=== PATIENT | male | born 1940 | race Caucasian/White ===

== ENCOUNTER 2019-07-25 17:11 | Inpatient (IN) | payer MEDICARE ==
[~2019-07-25 17:11] MED LIST: Iopamidol 370 76% 100 ML VIAL ONE
[2019-07-25] MEDS ORDERED: Ondansetron PF 4 MG/2 ML Vial ONE (17:48)
[2019-07-25 18:01] LABS: #Basophils 0.1 thou/uL (0.0-0.2); #Eosinphils 0.2 thou/uL (0.0-0.7); #Lymphocytes 1.8 thou/uL (1.20-3.40); #Monocytes 0.6 thou/uL (0.11-0.59); #Neutrophils 6.3 thou/uL (1.40-6.50); %Basophils 0.7 % (0.0-1.0); %Eosinophils 1.9 % (0.0-10.0); %Lymphocytes 19.9 % (21.0-51.0); %Monocytes 6.6 % (0.0-10.0); %Neutrophils 70.9 % (42.0-75.0); Hemoglobin 13.4 g/dL (14.0-18.0); Mean Corpuscular Hemoglobin 31.8 pg (27.0-31.0); Mean Platelet Volume 8.9 fL (7.4-10.4); Platelet Count 190 thou/uL (130-400); RBC Distribution Width 14.9 % (11.5-14.5); Red Blood Cell (RBC) Count 4.22 mill/uL (4.70-6.10); White Blood Cell (WBC) Count 8.8 thou/uL (4.8-10.8)
[2019-07-25 18:08] LABS: ALT (SGPT) 19 U/L (8-55); AST (SGOT) 20 U/L (5-34); Albumin 3.8 g/dL (3.4-4.8); Alkaline Phosphatase 147 U/L (40-110); Anion Gap 14 mmol/L (10-20); BUN (Urea Nitrogen) 17 mg/dL (8.4-25.7); Bilirubin, Total 0.4 mg/dL (0.2-1.2); CK (CPK) 39 U/L (30-200); Calc. Creatinine Clearance 0 mL/min (70-130); Calcium 8.9 mg/dL (7.8-10.44); Carbon Dioxide 29 mmol/L (23-31); Chloride 103 mmol/L (98-107); Estimated GFR-MDRD Greater than 90; Globulin 3.1 g/dL (2.4-3.5); Glucose 113 mg/dL (83-110); Lipase 11 U/L (8-78); Protein, Total 6.9 g/dL (5.8-8.1); Sodium 142 mmol/L (136-145)
[2019-07-25 18:11] LABS: Bilirubin Negative (Negative); Blood, Urine Trace (Negative); Clarity Clear (Clear); Glucose, Urine (Dipstick) Negative (Negative); Leukocyte Negative (Negative); Nitrite Negative (Negative); Protein, Urine (Dipstick) Negative (Neg-Trace); Urobilinogen 0.2 mg/dL (Less than 2)
[2019-07-25 18:12] LABS: Renal Epithelial 0-3 HPF (None Seen); Squamous Epithelial 0-3 HPF (0-3); WBC/HPF 0-3 HPF (0-3)
[2019-07-25 18:13] LABS: Bacteria/HPF 1+ HPF (None Seen)
--- NOTE | 2019-07-25 18:54 | CT ---
CT Brain WO Con: 07/25/2019 6:18 PM CLINICAL HISTORY: Headache with nausea vomiting and diarrhea. IMAGING TECHNIQUE: Multiple CT images were obtained of the brain without IV contrast. COMPARISON: Prior CT of the brain without contrast dated April 26, 2017 from [facility] . FINDINGS: Brain: There is stable severe chronic small vessel white matter ischemic change. There is stable mil d ex vacuo dilatation of the lateral ventricles. There is a stable left frontal peritoneal shunt catheter projecting into the region of the third ventricle. Ventricles: As above. Skull: Intact.. Visualized Paranasal sinuses: Stable mucus retention cyst left maxillary sinus.. Mastoid air cells:Clear. Extracranial soft tissues:The visualized portions of the peritoneal shunt catheter tubing appears int act. IMPRESSION: No acute intracranial abnormality.
--- NOTE | 2019-07-25 19:22 | CT ---
CT ABDOMEN AND PELVIS WITH IV CONTRAST: 07/25/19 HISTORY: Abdominal pain and vomiting. FINDINGS: Parenchymal scarring and calcified granulomata at the lung bases. Mild tubular ectasia of the right p osterior lung base. Marked fluid distention of the stomach. Small bowel is relatively decompressed. Small diverticulum pr ojects medially from the second portion of the duodenum. No free air or free fluid. Small right renal cyst. Arising from the tail of the pancreas is a heterogeneous, predominantly low density mass measuring 3. 7 cm diameter. No adjacent inflammation. Gallbladder is surgically absent. Prominent degenerative changes of the lumbar spine. Aortoiliac stent graft excludes a mild pisiform l ower abdominal aortic aneurysm. There is dilatation of the common iliac arteries, with the left measu ring up to 3.5 cm greatest diameter. IMPRESSION: Severe fluid distention of the stomach. Consider gastroparesis versus gastric outlet obstruction. Heterogeneous mass of the pancreatic tail. Neoplasm is favored. No metastasis evident. Severe atherosclerosis. Left common iliac artery aneurysm. Aortoiliac stent graft is in place. Heterogeneous mass of the pancreatic tail. Neoplasm is favored. POS: BST
[2019-07-25] MEDS ORDERED: metroNIDAZOLE 500 MG/100 ML BAG ONE (19:23)
[2019-07-25] MEDS ORDERED: Piperacillin/Tazobactam 3.375 GM VIAL ONE (19:23)
[2019-07-25] MEDS ORDERED: Sodium Chloride 0.9% 100 ML ONE (19:23)
[2019-07-25 21:04] LABS: Troponin I 0.021 ng/mL (< 0.028)
[2019-07-25] MEDS ORDERED: Ondansetron ODT 4 MG TAB SL PRN (23:59)
[2019-07-25] MEDS ORDERED: Ondansetron PF 4 MG/2 ML Vial IVP PRN (23:59)
[2019-07-26 00:19] VITALS: BMI 32.0
[2019-07-26 00:27] LABS: Troponin I 0.019 ng/mL (< 0.028)
[2019-07-26] MEDS ORDERED: metroNIDAZOLE 500 MG in Premix Bag 1 BAG IVPB SCH (06:00)
[2019-07-26] MEDS ORDERED: Piperacillin/Tazobactam 3.375 GM in Sodium Chloride 0.9% 100 ML IVPB SCH (06:00)
[2019-07-26] MEDS ORDERED: Ondansetron ODT 4 MG TAB PO PRN (07:36)
[2019-07-26] MEDS ORDERED: Calcium Carbonate 500 MG ChewTAB PO PRN (07:36)
[2019-07-26] MEDS ORDERED: Senokot S 8.6-50 MG TAB PO PRN (07:36)
[2019-07-26] MEDS ORDERED: Acetaminophen 325 MG TAB PO PRN (07:36)
[2019-07-26] MEDS ORDERED: Bisacodyl 5 MG TAB PO PRN (07:36)
[2019-07-26] MEDS ORDERED: HYDROcodone/Acetaminophen 7.5/325 mg Tablet PO PRN (07:36)
[2019-07-26] MEDS ORDERED: HYDROcodone/Acetaminophen 5/325 mg Tablet PO PRN (07:36)
[2019-07-26] MEDS ORDERED: Ondansetron PF 4 MG/2 ML Vial IVP PRN (07:36)
[2019-07-26] MEDS ORDERED: Melatonin 3 MG TAB PO PRN (07:38)
[2019-07-26] MEDS ORDERED: Docusate 100 MG CAP PO PRN (07:38)
[2019-07-26] MEDS ORDERED: Labetalol HCl 100 MG/20 ML VIAL SLOW IVP PRN (07:38)
[2019-07-26] MEDS ORDERED: diphenhydrAMINE 25 MG CAP PO PRN (07:38)
[2019-07-26] MEDS ORDERED: Benzonatate 100 MG CAP PO PRN (07:38)
[2019-07-26] MEDS ORDERED: Non-Formulary Item 1 EACH (Sacubitril/Valsartan [Entresto 97 Mg-103 Mg Tablet] 1 EACH) PO SCH (09:00)
[2019-07-26] MEDS ORDERED: Nystatin/Triamcinolone Cream 30 GM TUBE TOP SCH (09:00)
[2019-07-26] MEDS: Aspirin 81 mg Enteric Coated Tablet PO SCH (10:35)
[2019-07-26] MEDS: Heparin 5,000 UNITS/ML VIAL SC SCH ×3 (10:36→20:26)
[2019-07-26] MEDS: Famotidine 20 MG TAB PO SCH ×2 (10:36→20:23)
[2019-07-26] MEDS: Gabapentin 100 MG CAP PO SCH ×3 (10:36→20:25)
[2019-07-26] MEDS: Primidone 50 MG TAB PO SCH ×2 (10:37→20:26)
[2019-07-26] MEDS: Sacubitril 49 MG/Valsartan 51 MG TABLET PO SCH ×2 (10:37→20:26)
[2019-07-26] MEDS: Levothyroxine Sodium 50 MCG TAB PO SCH (10:37)
[2019-07-26] MEDS: Nystatin/Triamcinolone Cream 15 GM TUBE TOP SCH ×2 (11:53→20:44)
--- NOTE | 2019-07-26 14:53 | CON ---
DATE OF CONSULTATION: REASON FOR CONSULT: Pancreatic tail mass. HISTORY OF PRESENT ILLNESS: Mr. Carranza is a very pleasant 78-year-old gentleman with past medical history of prostate cancer, pancreatic lesion, and CVA, who presented to the emergency room in [place] with a 1-day history of nausea and vomiting. He stated started after traveling in his car. He thinks he might have gotten car sick. He was also complaining of right lower quadrant abdominal pain. He underwent a CT scan of his abdomen and pelvis. It showed a low-density mass measuring 3.7 cm in diameter. It is heterogeneous. There was also fluid distention in the stomach. There was no evidence of metastatic disease. The patient has a history of pancreatic mass for over 15 years. He has never had a biopsy but was followed with CT scans in [place]. His last scan was several years ago and he does not remember where it was performed. He also has a history of prostate cancer in 2003. He underwent radiation, but denies taking any shots. He says he still has his prostate. He is being followed by Dr. Jarquin. He currently denies any complaints at this time. No nausea or vomiting since arrival. He is seen at bedside with his present. History is obtained from and patient. PAST MEDICAL HISTORY: 1. Prostate cancer. 2. AAA. 3. CVA with right-sided weakness and SUPERVISOR RECORDS CHANGE shunt. 4. Coronary artery disease. 5. Squamous cell skin cancer. 6. Hypothyroidism. 7. pancreatic mass, likely benign PAST SURGICAL HISTORY: 1. SUPERVISOR RECORDS CHANGE shunt placement. 2. Coronary artery stent placement. 3. Skin biopsy on his ear and scalp. ALLERGIES: NO KNOWN DRUG ALLERGIES. HOME MEDICATIONS: Allopurinol, aspirin, atorvastatin, clonazepam, Cymbalta, furosemide, Neurontin, levothyroxine, metoprolol, potassium, primidone, and Entresto. FAMILY HISTORY: Noncontributory. SOCIAL HISTORY: He is , lives with his spouse. No alcohol, tobacco, or illicit drug use. REVIEW OF SYSTEMS: A 10-point review of systems is negative except for noted in HPI. PHYSICAL EXAMINATION: VITAL SIGNS: Temperature 97.9, pulse is 60, respiratory rate 18, BP is 130/60. He is 96% on room air. GENERAL: This is a chronically ill-appearing male, in no acute distress. HEENT: Normocephalic, atraumatic. He has a shunt in his scalp. NECK: Supple. CV: Regular rate and rhythm. LUNGS: Clear anterior. ABDOMEN: Obese, nontender. Bowel sounds are positive. EXTREMITIES: No clubbing, cyanosis, or edema. SKIN: There is rash in his peritoneum. HEMATOLOGIC: No petechiae or purpura. NEUROLOGICAL: He has mild right-sided weakness and delayed answering questions , but is otherwise oriented. PERTINENT LABS AND X-RAYS: Current WBC is 8.8, hemoglobin 13.4, hematocrit 43.2 , platelet count 290,000. He has 71% neutrophils, 20% lymphocytes. Sodium is 142 , potassium 4.0, chloride 103, CO2 is 29, BUN is 17, creatinine 0.78, lactic acid 1.5, calcium 8.9, bilirubin 0.4, AST is 20, ALT is 19, alkaline phosphatase is 147. Serum total protein is 6.9, albumin 3.8, globulin 3.1. TSH is normal. Troponin is normal. Urine is positive for bacteria. ASSESSMENT: 1. Pancreatic tail mass. 2. History of prostate cancer. DISCUSSION: The patient states he has had this pancreatic mass for over 15 years. He has seen oncologist in the past, but never had a biopsy. Unfortunately, he does not have the name of the oncologist or who scanned it last, but he did state he his scan was probably about 10 years ago when he had his aortic aneurysm repaired. It was stable at that time. He has had a colonoscopy before and states he has seen Dr. Galvez. We will ask his office to see if they have any documentation regarding this pancreatic mass. We will check a CA-19-9 and have asked the patient to research his medical records to find imaging of this mass to confirm no recent growth. Case has been discussed with Dr. Tipton. We will follow up on this. Pancreatic mass to be followed by PCP or GI in the outpatient setting. Thank you for the consult. Job ID: [id number] MTDD
--- NOTE | 2019-07-26 14:56 | RAD ---
PORTABLE CHEST 1 VIEW: DATE: 07/26/2019. TIME: 1:59 p.m. HISTORY: CHF. FINDINGS/IMPRESSION: The heart size is borderline. The aorta is tortuous. There is a right-sided pacer device. No lobar consolidation, pneumothoraces, saritha pulmonary edema, or large effusions are seen. There is an old fracture of the left distal clavicle. There is a left-sided OIL PROCESS STILLMAN shunt tubing. POS: KAREL
--- NOTE | 2019-07-26 15:21 | PDOC.HHP ---
Hospitalist HPI - History of Present Illness Nausea, vomiting, diarrhea, and near syncope History of Present Illness: Mr. Carranza is a very pleasant 78-year-old white male with past medical history of pancreatic lesion that has been followed over the last 15 years, prostate cancer , congestive heart failure, pacemaker, hypertension, hyperlipidemia, hypothyroidism, depression, and essential tremor who presents with acute onset of nausea, vomiting, diarrhea and near syncope. Patient's and son at bedside are able to aid in history. They tell me that he was at a doctor's appointment one he started feeling ill. Patient having nausea, vomiting times one, and diarrhea. Patient felt like he was going to pass out at that time though he did not actually passout. Patient did not fall. Patient did not lose consciousness. Patient did not have any trauma. Patient did not have any seizure type activity. Patient did not have a chest pain. Patient did not have any palpitations. Patient did not have any shortness of breath. Patient presented to the emergency department for further evaluation. A CT scan of the abdomen does demonstrate pancreatic mass, however as we do not have old records compared to we cannot determine if it is grown in size or has unchanged. There is no other acute intra-abdominal pathology. Patient's family was concerned that he might have an infection is the cause of nausea and vomiting. Patient has normal white blood cell count. Patient has no fever. Patient has normal urine analysis. Chest x-ray does not demonstrate any acute cardiothoracic process or pneumonia. At this time I do not believe that the patient has any systemic bacterial infection that would warrant continuing antibiotic therapy. Patient does have fungal infection of the skin in the groin area, will add topical antifungal cream. Nausea, vomiting, and diarrhea have resolved this AM. Patient's only complaint this morning is severe left knee pain. No trauma, likely chronic osteoarthritis, will add plain film. With patient's cardiac history will consult cardiology for near syncope. Continuous telemetry to monitor for arrhythmia that may explain symptoms. Echocardiogram ordered to further evaluate for near syncope. Will consult oncology for outpatient follow up on his pancreatic lesion, prostate lesion, and skin cancer being under the care of dermatology. Hospitalist ROS - Review of Systems All other systems reviewed; all pertinent +/- noted in HPI/Subj - Medication Medications: Active Medications Generic Name Dose Route Start Last Admin Trade Name Freq PRN Reason Stop Dose Admin Aspirin 81 mg 07/26/19 09:00 07/26/19 10:35 Ecotrin PO Not Given DAILY [facility] Famotidine 20 mg 07/26/19 09:00 07/26/19 10:36 Pepcid PO Not Given BID [facility] Gabapentin 100 mg 07/26/19 09:00 07/26/19 10:36 Neurontin PO Not Given TID [facility] Heparin Sodium (Porcine) 5,000 units 07/26/19 09:00 07/26/19 10:36 Heparin SC Not Given TID [facility] Levothyroxine Sodium 50 mcg 07/26/19 09:00 07/26/19 10:37 Synthroid PO Not Given QAM [facility] Metoprolol Succinate 25 mg 07/26/19 09:00 07/26/19 10:37 Toprol Xl PO Not Given DAILY [facility] Nystatin/Triamcinolone Acetonide 0 gm 07/26/19 09:00 07/26/19 11:53 Mycogen Ii Cream TOP 1 applic BID [facility] Administration Primidone 150 mg 07/26/19 09:00 07/26/19 10:37 Mysoline PO Not Given BID [facility] Sacubitril/Valsartan 2 tab 07/26/19 09:00 07/26/19 10:37 Entresto 49 Mg-51 Mg Tablet PO Not Given BID [facility] Sodium Chloride 10 ml 07/26/19 09:00 07/26/19 10:38 Flush - Normal Saline IVF Not Given Q12HR [facility] Hospitalist History - Past Medical History Source: patient, family Cardiac: reports: AFIB, CHF, HTN, CA, Syncope, Hyperlipidemia, Valve insufficiency Pulmonary: reports: congestive heart failure, heart attack, high cholesterol, hypertension Heme/Onc: reports: Cancer Psych: reports: Depression Musculoskeletal: reports: Osteoarthritis - Past Surgical History Past Surgical History: reports: Other (FLORAL SPECIALIST shunt, pacemaker) - Family History Family History: reports: hypertension - Social History Smoking Status: Unknown if ever smoked Alcohol: reports: None Drugs: reports: none Living Situation: With Family Domestic Violence: Negative Activity level: uses cane/walker - Exam General Appearance: NAD, awake alert Eye: PERRL, anicteric sclera ENT: normocephalic atraumatic, moist mucosa Neck: supple, symmetric, no lymphadenopathy Heart: no murmur, no gallops, no rubs Respiratory: CTAB, no wheezes, no rales, no ronchi, normal chest expansion Gastrointestinal: soft, non-tender, non-distended, no palpable masses, no guarding, no rigidity Extremities: no edema Skin: no lesions, no rashes Skin - other findings: Fungal groin infection Neurological: cranial nerve grossly intact, normal sensation to touch, no focal deficits Musculoskeletal: no muscle wasting, generalized weakness Musculoskeletal - other findings: Left knee pain - no signs of effusion or cellulitis Psychiatric: A&O x 3, somnolent Hospitalist Results - Labs Result Diagrams: 07/25/19 17:27 07/25/19 17:27 Lab results: WBC 8.8 thou/uL (4.8-10.8) 07/25/19 17:27 Hgb 13.4 g/dL (14.0-18.0) L 07/25/19 17:27 Hct 43.2 % (42.0-52.0) 07/25/19 17:27 MCV 102.0 fL (78.0-98.0) H 07/25/19 17:27 Plt Count 190 thou/uL (130-400) 07/25/19 17:27 Neutrophils % 70.9 % (42.0-75.0) 07/25/19 17:27 Sodium 142 mmol/L (136-145) 07/25/19 17:27 Potassium 4.0 mmol/L (3.5-5.1) 07/25/19 17:27 Chloride 103 mmol/L (98-107) 07/25/19 17:27 Carbon Dioxide 29 mmol/L (23-31) 07/25/19 17:27 BUN 17 mg/dL (8.4-25.7) 07/25/19 17:27 Creatinine 0.78 mg/dL (0.7-1.3) 07/25/19 17:27 Glucose 113 mg/dL (83-110) H 07/25/19 17:27 Lactic Acid 1.5 mmol/L (0.5-2.2) 07/25/19 17:27 Calcium 8.9 mg/dL (7.8-10.44) 07/25/19 17:27 Total Bilirubin 0.4 mg/dL (0.2-1.2) 07/25/19 17:27 AST 20 U/L (5-34) 07/25/19 17:27 ALT 19 U/L (8-55) 07/25/19 17:27 Alkaline Phosphatase 147 U/L (40-110) H 07/25/19 17:27 Creatine Kinase 39 U/L (30-200) 07/25/19 17:27 Troponin I 0.019 ng/mL (< 0.028) 07/25/19 23:50 Serum Total Protein 6.9 g/dL (5.8-8.1) 07/25/19 17:27 Albumin 3.8 g/dL (3.4-4.8) 07/25/19 17:27 Lipase 11 U/L (8-78) 07/25/19 17:27 Urine Ketones Negative mg/dL (Negative) 07/25/19 18:00 Urine Blood Trace (Negative) A 07/25/19 18:00 Urine Nitrite Negative (Negative) 07/25/19 18:00 Ur Leukocyte Esterase Negative (Negative) 07/25/19 18:00 Urine RBC 4-6 HPF (0-3) A 07/25/19 18:00 Urine WBC 0-3 HPF (0-3) 07/25/19 18:00 Ur Squamous Epith Cells 0-3 HPF (0-3) 07/25/19 18:00 Urine Bacteria 1+ HPF (None Seen) A 07/25/19 18:00 - Radiology Interpretation CT scan - head Status: image reviewed by me CT scan - abdomen Status: image reviewed by me Chest x-ray Status: image reviewed by ga Hospitalist H&P A/P - Problem (1) Syncope Code(s): R55 - SYNCOPE AND COLLAPSE Status: Acute (2) Atrial fibrillation Code(s): I48.91 - UNSPECIFIED ATRIAL FIBRILLATION Status: Acute (3) Nausea & vomiting Code(s): R11.2 - NAUSEA WITH VOMITING, UNSPECIFIED Status: Acute (4) Diarrhea Code(s): R19.7 - DIARRHEA, UNSPECIFIED Status: Acute (5) CAD (coronary artery disease) Code(s): I25.10 - ATHSCL HEART DISEASE OF [place] CORONARY ARTERY W/O ANG PCTRS Status: Acute (6) CHF (congestive heart failure) Code(s): I50.9 - HEART FAILURE, UNSPECIFIED Status: Acute (7) HTN (hypertension) Code(s): I10 - ESSENTIAL (PRIMARY) HYPERTENSION Status: Acute (8) HLD (hyperlipidemia) Code(s): E78.5 - HYPERLIPIDEMIA, UNSPECIFIED Status: Acute (9) Hypothyroid Code(s): E03.9 - HYPOTHYROIDISM, UNSPECIFIED Status: Acute (10) Depression Code(s): F32.9 - MAJOR DEPRESSIVE DISORDER, SINGLE EPISODE, UNSPECIFIED Status : Acute (11) Tremor Code(s): R25.1 - TREMOR, UNSPECIFIED Status: Acute (12) Viral gastroenteritis Code(s): A08.4 - VIRAL INTESTINAL INFECTION, UNSPECIFIED Status: Acute - Plan Plan: Plan Admit to medical unit with telemetry cardiology consultation, recommendations appreciated oncology consultation, recommendations appreciated with syncope/near syncope concern for cardiac etiology cardiac enzymes are negative EKG does not demonstrate any acute ST - T segment abnormalities Echocardiogram continuous telemetry to monitor for arrhythmia as cause and expiration of near syncopal episode patient did not actually lose consciousness no chest pain, shortness of breath, fall, or trauma nausea/ vomiting/diarrhea has resolved, symptomatic therapy as needed it is possible patient had motion sickness from a car ride versus viral gastroenteritis no sick contacts WBC count normal no fever urine analysis negative for bladder infection chest x-ray clear for pneumonia at this time I do not believe that IV antibiotics for oral antibiotics are indicated topical antifungal cream for jock itch Concerning pancreatic lesion, will need good follow up in outpatient clinic with oncology - also hx of prostate CA and skin CA currently being treated Continue home medications as able blood pressure control
--- NOTE | 2019-07-26 16:34 | RAD ---
XR Knee Lt 4 View STANDARD HISTORY: Left knee pain FINDINGS: No fracture or dislocation is identified. Vascular calcifications are present. There is fullness in t he suprapatellar pouch, suspicious for joint effusion. No significant osteophytosis is seen.
[2019-07-26] MEDS: Allopurinol 300 MG TAB PO SCH (20:22)
[2019-07-26] MEDS: Atorvastatin Calcium 40 MG TAB PO SCH (20:23)
[2019-07-26] MEDS: clonazePAM 0.5 MG TAB PO SCH (20:23)
[2019-07-26] MEDS: DULoxetine 60 MG CAP PO SCH (20:23)
[2019-07-26] MEDS: Apixaban 5 MG TAB PO SCH (20:23)
--- NOTE | 2019-07-26 20:49 | CON ---
DATE OF CONSULTATION: 07/26/2019 REASON FOR CONSULTATION: Congestive heart failure, near syncope. HISTORY OF PRESENT ILLNESS: Mr. Carranza is an 78-year-old gentleman. He has an out of town paper machine backtender in [place]. The patient presented to the emergency room complaining of nausea. He also had some vomiting. He had diarrhea as well. He apparently at some point, felt lightheaded. The patient states he does not really remember passing out or coming close to passing out. PAST MEDICAL HISTORY: 1. History of stroke with right-sided weakness. 2. History of prostate cancer. 3. History of biventricular pacemaker. He said that was put in about a year ago, his family says. 4. He has a TRUCK JUMPER shunt. 5. His family states he has had some stents put in his heart a year or two ago in [place]. ALLERGIES: NONE KNOWN. MEDICATIONS: 1. Gabapentin. 2. Aspirin. 3. Primidone. 4. Entresto 97/103 twice a day. 5. Metoprolol 25 mg. 6. Lasix 20 mg a day. SOCIAL HISTORY: Cared for by his family. PHYSICAL EXAMINATION: GENERAL: This is a pleasant elderly gentleman, somewhat frail-appearing. VITAL SIGNS: Blood pressure 120/56, pulse 60, it is regular. LUNGS: Clear. CARDIAC: Normal S1, normal S2. ABDOMEN: Obese, nontender. EXTREMITIES: Warm, dry. No clubbing or cyanosis. There is moderate peripheral edema. PERTINENT LABORATORY DATA: Hemoglobin 13.4. Troponin peak is 0.021, which is still in the negative range. EKG reveals a biventricular paced rhythm with what appears to be underlying atrial fibrillation, although the other times it looks like he is atrial paced, ventricular sensed. Echocardiogram is pending. ASSESSMENT: 1. Likely chronic congestive heart failure. 2. Suspect that he has paroxysmal atrial fibrillation. 3. Coronary artery disease. 4. Biventricular pacer. PLAN: 1. Recommended he have an echocardiogram. 2. Recommended we try to interrogate the pacemaker, it is a [employer] device. Most of the device is placed in this community or [employer]. Therefore, we will try to contact the [employer] rep. 3. Family indicates they may not wish to stay any longer and wished to follow up with their paper machine backtender in [place]. I told them that certainly their decision whether they stay here. They indicate they may be leaving shortly. Job ID: [id number]
[2019-07-26] MEDS ORDERED: FLU VACC TS2019-20(65YR UP)/PF 180 MCG/0.5 ML SYRINGE IM ONE (21:00)
[2019-07-27 04:47] LABS: #Basophils 0.1 thou/uL (0.0-0.2); #Eosinphils 0.3 thou/uL (0.0-0.7); #Lymphocytes 1.9 thou/uL (1.20-3.40); #Monocytes 0.6 thou/uL (0.11-0.59); #Neutrophils 3.8 thou/uL (1.40-6.50); %Eosinophils 3.9 % (0.0-10.0); %Lymphocytes 28.4 % (21.0-51.0); %Monocytes 8.6 % (0.0-10.0); %Neutrophils 58.1 % (42.0-75.0); Mean Corpuscular HGB CONC 32.5 g/dL (32.0-36.0); Mean Corpuscular Hemoglobin 33.4 pg (27.0-31.0); Mean Platelet Volume 8.2 fL (7.4-10.4); Platelet Count 164 thou/uL (130-400); RBC Distribution Width 14.1 % (11.5-14.5); Red Blood Cell (RBC) Count 3.88 mill/uL (4.70-6.10); White Blood Cell (WBC) Count 6.5 thou/uL (4.8-10.8)
[2019-07-27 05:07] LABS: Anion Gap 12 mmol/L (10-20); BUN (Urea Nitrogen) 19 mg/dL (8.4-25.7); Calc. Creatinine Clearance 116 mL/min (70-130); Calcium 8.6 mg/dL (7.8-10.44); Carbon Dioxide 29 mmol/L (23-31); Chloride 104 mmol/L (98-107); Estimated GFR-MDRD Greater than 90; Glucose 96 mg/dL (83-110); Potassium 3.9 mmol/L (3.5-5.1); Sodium 141 mmol/L (136-145)
[2019-07-27] MEDS: Levothyroxine Sodium 50 MCG TAB PO SCH (07:58)
[2019-07-27] MEDS: Apixaban 5 MG TAB PO SCH ×2 (07:58→20:42)
[2019-07-27] MEDS: Aspirin 81 mg Enteric Coated Tablet PO SCH (07:58)
[2019-07-27] MEDS: Primidone 50 MG TAB PO SCH ×2 (07:59→20:43)
[2019-07-27] MEDS: Sacubitril 49 MG/Valsartan 51 MG TABLET PO SCH ×2 (07:59→20:44)
[2019-07-27] MEDS: Famotidine 20 MG TAB PO SCH ×2 (07:59→20:21)
[2019-07-27] MEDS: Gabapentin 100 MG CAP PO SCH ×3 (07:59→20:43)
[2019-07-27] MEDS: Nystatin/Triamcinolone Cream 15 GM TUBE TOP SCH ×2 (08:02→20:21)
[2019-07-27] MEDS ORDERED: methylPREDNISolone Sod Succ 40 MG VIAL IVP SCH (12:45)
--- NOTE | 2019-07-27 13:16 | PRG ---
DATE OF SERVICE: 07/27/2019 SUBJECTIVE: Mr. Carranza is doing fine. No chest pain or pressure. No shortness of breath. OBJECTIVE: VITAL SIGNS: Blood pressure 137/63, pulse 60 and it is paced. LUNGS: Clear. CARDIAC: Normal S1. Normal S2. ABDOMEN: Soft, nontender. EXTREMITIES: Mild edema. Echocardiogram technically difficult due to body habitus, but the ejection fraction estimated at 40% to 50%, [id number] mitral regurgitation. On the conveyor monitor, the pacemaker appears to be sensing and pacing appropriately with good capture. No dysfunction identified. He does have paroxysmal atrial fibrillation. ASSESSMENT: 1. Congestive heart failure, systolic and diastolic combined, chronic, appears compensated. 2. Biventricular pacer appears to be functioning normally. [facility] was called yesterday. They have not yet arrived. The family was instructed that the device appears to be functioning normally. They have appointment to see the revenue stamp cutter next week to further interrogate. Otherwise, continue current medical regimen. He will follow up with his primary revenue stamp cutter next week. Job ID: [id number]
--- NOTE | 2019-07-27 15:55 | PDOC.MOPN ---
Interval History: knee pain improved. No nausea/vomiting - Vital Signs Vital Signs: Vital Signs (12 hours) Temp Pulse Pulse Pulse Resp BP BP 07/27/19 15:26 98 F 60 16 07/27/19 13:50 62 64 136/65 142/68 H 07/27/19 11:40 97.4 F L 60 16 07/27/19 09:05 60 142/60 H 07/27/19 07:51 97.5 F L 60 16 07/27/19 04:00 98.2 F 60 18 BP BP Pulse Ox 07/27/19 15:26 133/66 95 07/27/19 13:50 07/27/19 11:40 137/63 95 07/27/19 09:05 07/27/19 07:51 131/63 95 07/27/19 04:00 131/60 93 L Weight Weight 229 lb 9.6 oz - Physical Exam General: Alert HEENT: Atraumatic Lungs: Clear to auscultation Cardiovascular: Regular rate Abdomen: Normal bowel sounds Extremities: No clubbing Skin: No rashes Neurological: Normal gait Psych/Mental Status: Mental status NL - Labs Result Diagrams: 07/27/19 04:23 07/27/19 04:23 Lab results: Laboratory Results - last 24 hr 07/27/19 04:23: WBC 6.5, RBC 3.88 L, Hgb 13.0 L, Hct 40.0 L, MCV 103.0 H, MCH 33.4 H, MCHC 32.5, RDW 14.1, Plt Count 164, MPV 8.2, Neutrophils % 58.1, Lymphocytes % 28.4, Monocytes % 8.6, Eosinophils % 3.9, Basophils % 1.0, Neutrophils # 3.8, Lymphocytes # 1.9, Monocytes # 0.6 H, Eosinophils # 0.3, Basophils # 0.1 07/27/19 04:23: Sodium 141, Potassium 3.9, Chloride 104, Carbon Dioxide 29, Anion Gap 12, BUN 19, Creatinine 0.75, Estimated GFR (MDRD) Greater than 90, Glucose 96, Calcium 8.6 07/26/19 12:23: CA 19-9 Antigen 12 Status: lab reviewed by me A/P - Problem (1) Pancreatic abnormality Current Visit: Yes Code(s): Q45.3 - 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 No scans to confirm if has enlarged recently. CA 19-9 is negative. this mass is likely benign but will need follow-up scan and/or lab. Can be done by PCP or GI. Home when ok with sound.
--- NOTE | 2019-07-27 18:41 | PDOC.HOSPP ---
- Subjective Encounter Date: 07/27/19 Subjective: Pt seen family member at bed site , Pt c/o pain left knee area and as per patient bending knee is less pain full than stretching it , no dizziness but feels very weak and lethargic - Objective Vital Signs & Weight: Vital Signs (12 hours) Temp Pulse Pulse Pulse Resp BP BP 07/27/19 15:26 98 F 60 16 07/27/19 13:50 62 64 136/65 142/68 H 07/27/19 11:40 97.4 F L 60 16 07/27/19 09:05 60 142/60 H 07/27/19 07:51 97.5 F L 60 16 BP BP Pulse Ox 07/27/19 15:26 133/66 95 07/27/19 13:50 07/27/19 11:40 137/63 95 07/27/19 09:05 07/27/19 07:51 131/63 95 Weight Weight 229 lb 9.6 oz I&O: 07/26/19 07/27/19 07/28/19 06:59 06:59 06:59 Intake Total 2200 Output Total 1200 Balance 1000 Result Diagrams: 07/27/19 04:23 07/27/19 04:23 Hospitalist ROS - Review of Systems Constitutional: reports: weakness Eyes: denies: pain ENT: denies: ear pain Respiratory: denies: cough Cardiovascular: denies: chest pain Gastrointestinal: denies: nausea Genitourinary: denies: dysuria Musculoskeletal: reports: other (left knee pain) Neurological: denies: weakness - Medication Medications: Active Medications Generic Name Dose Route Start Last Admin Trade Name Darrinq PRN Reason Stop Dose Admin Acetaminophen 650 mg 07/26/19 07:36 07/27/19 13:30 Tylenol PO 650 mg Q4H PRN Administration Headache/Fever/Mild Pain (1-3) Allopurinol 300 mg 07/26/19 21:00 07/26/19 20:22 Zyloprim PO Not Given QPM [facility] Apixaban 5 mg 07/26/19 21:00 07/27/19 07:58 Eliquis PO Not Given BID [facility] Aspirin 81 mg 07/26/19 09:00 07/27/19 07:58 Ecotrin PO Not Given DAILY [facility] Atorvastatin Calcium 40 mg 07/26/19 21:00 07/26/19 20:23 Lipitor PO Not Given QPM [facility] Clonazepam 0.5 mg 07/26/19 21:00 07/26/19 20:23 Klonopin PO Not Given QPM [facility] Duloxetine HCl 60 mg 07/26/19 21:00 07/26/19 20:23 Cymbalta PO Not Given HS [facility] Famotidine 20 mg 07/26/19 09:00 07/27/19 07:59 Pepcid PO Not Given BID [facility] Gabapentin 100 mg 07/26/19 09:00 07/27/19 15:21 Neurontin PO Not Given TID [facility] Levothyroxine Sodium 50 mcg 07/26/19 09:00 07/27/19 07:58 Synthroid PO Not Given QAM [facility] Metoprolol Succinate 25 mg 07/26/19 09:00 07/27/19 07:59 Toprol Xl PO Not Given DAILY [facility] Nystatin/Triamcinolone Acetonide 0 gm 07/26/19 09:00 07/27/19 08:02 Mycogen Ii Cream TOP 1 applic BID [facility] Administration Primidone 150 mg 07/26/19 09:00 07/27/19 07:59 Mysoline PO Not Given BID [facility] Sacubitril/Valsartan 2 tab 07/26/19 09:00 07/27/19 07:59 Entresto 49 Mg-51 Mg Tablet PO Not Given BID [facility] Sodium Chloride 10 ml 07/26/19 09:00 07/27/19 08:02 Flush - Normal Saline IVF 10 ml Q12HR FILE[facility] Administration - Exam General Appearance: awake alert Eye: anicteric sclera ENT: normocephalic atraumatic Neck: supple Heart: no murmur Respiratory: no wheezes Gastrointestinal: soft Extremities: no cyanosis Skin: no lesions Neurological: cranial nerve grossly intact Musculoskeletal - other findings: swelling leftknee area ,no redness or skin discoloration Psychiatric: normal affect Hosp A/P - Plan Syncope most likley vaso vagal as happened with nasuea vomiting and diarrhea neg cardiac work up , Cardiology cleared pt to dc Pain left knee No evidence of fracture on X ray with marked functional decline Pt very weak and unable to mobilize due to pain given steroids and local care PT evaluation Atrial fibrillation Continue eliquis as per cardiology Nausea & vomiting Diarrhea Improved CAD (coronary artery disease) CHF (congestive heart failure) currently compensated HTN (hypertension) HLD (hyperlipidemia) Hypothyroid continue home meds Depression continue home meds Tremor Discussed with pt and nikhil at bed site and Dr Orozco , PT recomended in patient rehab but pt and family wants to leave as they have an appoitment out paitent on tuesday , possible dc in am if stable clincially
[2019-07-27] MEDS: Allopurinol 300 MG TAB PO SCH (20:42)
[2019-07-27] MEDS: Atorvastatin Calcium 40 MG TAB PO SCH (20:42)
[2019-07-27] MEDS: clonazePAM 0.5 MG TAB PO SCH (20:43)
[2019-07-27] MEDS: DULoxetine 60 MG CAP PO SCH (20:43)
[2019-07-27] MEDS: Diclofenac 1% 100 GM GEL TP SCH (22:05)
[2019-07-28] MEDS: Primidone 50 MG TAB PO SCH ×2 (09:32→20:09)
[2019-07-28] MEDS: Levothyroxine Sodium 50 MCG TAB PO SCH (09:32)
[2019-07-28] MEDS: Sacubitril 49 MG/Valsartan 51 MG TABLET PO SCH ×2 (09:33→20:09)
[2019-07-28] MEDS: Aspirin 81 mg Enteric Coated Tablet PO SCH (09:33)
[2019-07-28] MEDS: Apixaban 5 MG TAB PO SCH ×2 (09:33→20:08)
[2019-07-28] MEDS: Gabapentin 100 MG CAP PO SCH ×3 (09:33→20:09)
[2019-07-28] MEDS: Famotidine 20 MG TAB PO SCH ×2 (09:34→20:02)
[2019-07-28] MEDS: Nystatin/Triamcinolone Cream 15 GM TUBE TOP SCH ×2 (09:34→20:03)
[2019-07-28] MEDS: Diclofenac 1% 100 GM GEL TP SCH ×4 (10:38→20:03)
--- NOTE | 2019-07-28 12:51 | PDOC.HOSPP ---
- Subjective Encounter Date: 07/28/19 Encounter Time: 12:49 Subjective: Mr. Carranza was seen today in follow-up of pre-syncope. He does not have any complaints this afternoon. He denies chest pain or difficulty breathing. He denies feeling dizzy or lightheaded. - Objective Vital Signs & Weight: Vital Signs (12 hours) Temp Pulse Resp BP Pulse Ox 07/28/19 11:52 97.5 F L 62 16 140/65 96 07/28/19 08:43 97.7 F 60 16 130/63 95 07/28/19 04:00 98.0 F 59 L 18 124/58 L 97 Weight Weight 229 lb 9.6 oz I&O: 07/27/19 07/28/19 07/29/19 06:59 06:59 05:59 Intake Total 2200 Output Total 1200 Balance 1000 Result Diagrams: 07/27/19 04:23 07/27/19 04:23 Hospitalist ROS - Medication Medications: Active Medications Generic Name Dose Route Start Last Admin Trade Name Freq PRN Reason Stop Dose Admin Acetaminophen 650 mg 07/26/19 07:36 07/27/19 13:30 Tylenol PO 650 mg Q4H PRN Administration Headache/Fever/Mild Pain (1-3) Allopurinol 300 mg 07/26/19 21:00 07/27/19 20:42 Zyloprim PO Not Given QPM FILE[facility] Apixaban 5 mg 07/26/19 21:00 07/28/19 09:33 Eliquis PO 5 mg BID [facility] Administration Aspirin 81 mg 07/26/19 09:00 07/28/19 09:33 Ecotrin PO 81 mg DAILY [facility] Administration Atorvastatin Calcium 40 mg 07/26/19 21:00 07/27/19 20:42 Lipitor PO Not Given QPM [facility] Clonazepam 0.5 mg 07/26/19 21:00 07/27/19 20:43 Klonopin PO Not Given QPM [facility] Diclofenac Sodium 2 gm 07/27/19 21:00 07/28/19 11:54 Voltaren TP 1 applic QID [facility] Administration Duloxetine HCl 60 mg 07/26/19 21:00 07/27/19 20:43 Cymbalta PO Not Given HS [facility] Famotidine 20 mg 07/26/19 09:00 07/28/19 09:34 Pepcid PO Not Given BID [facility] Gabapentin 100 mg 07/26/19 09:00 07/28/19 09:33 Neurontin PO 100 mg TID [facility] Administration Levothyroxine Sodium 50 mcg 07/26/19 09:00 07/28/19 09:32 Synthroid PO 50 mcg QAM [facility] Administration Metoprolol Succinate 25 mg 07/26/19 09:00 07/28/19 09:33 Toprol Xl PO 25 mg DAILY [facility] Administration Nystatin/Triamcinolone Acetonide 0 gm 07/26/19 09:00 07/28/19 09:34 Mycogen Ii Cream TOP 1 applic BID [facility] Administration Primidone 150 mg 07/26/19 09:00 07/28/19 09:32 Mysoline PO 150 mg BID [facility] Administration Sacubitril/Valsartan 2 tab 07/26/19 09:00 07/28/19 09:33 Entresto 49 Mg-51 Mg Tablet PO 2 tab BID [facility] Administration Sodium Chloride 10 ml 07/26/19 09:00 07/28/19 09:35 Flush - Normal Saline IVF 10 ml Q12HR FILE[facility] Administration - Exam Eye: PERRL, anicteric sclera Heart: RRR, no murmur, no gallops, no rubs, normal peripheral pulses Respiratory: CTAB, no wheezes, no rales, no ronchi, normal chest expansion Gastrointestinal: soft, non-tender, non-distended, normal bowel sounds, no palpable masses, no hepatomegaly Extremities: no cyanosis, no clubbing, 1+ LE edema (trace pedal edema bilaterally) Hosp A/P (1) Pre-syncope Status: Acute (2) CAD (coronary artery disease) Code(s): I25.10 - ATHSCL HEART DISEASE OF [place] CORONARY ARTERY W/O ANG PCTRS Status: Chronic (3) HTN (hypertension) Code(s): I10 - ESSENTIAL (PRIMARY) HYPERTENSION Status: Chronic (4) Hypothyroid Code(s): E03.9 - HYPOTHYROIDISM, UNSPECIFIED Status: Chronic (5) Atrial fibrillation Code(s): I48.91 - UNSPECIFIED ATRIAL FIBRILLATION Status: Chronic (6) Nausea & vomiting Code(s): R11.2 - NAUSEA WITH VOMITING, UNSPECIFIED Status: Resolved (7) Heart failure, systolic and diastolic Code(s): I50.40 - UNSP COMBINED SYSTOLIC AND DIASTOLIC (CONGESTIVE) HRT FAIL Status: Chronic - Plan * Pre-syncope- possible vaso-vagal- resolved * Nausea and Vomiting- resolved * HTN- blood pressure is stable * AFIB- his heart rate is stable * Combined Systolic and Diastolic heart failure- compensated * Awaiting Rehab transfer
[2019-07-28] MEDS: Allopurinol 300 MG TAB PO SCH (20:08)
[2019-07-28] MEDS: DULoxetine 60 MG CAP PO SCH (20:09)
[2019-07-28] MEDS: clonazePAM 0.5 MG TAB PO SCH (20:09)
[2019-07-28] MEDS: Atorvastatin Calcium 40 MG TAB PO SCH (20:09)
[2019-07-29] MEDS: Famotidine 20 MG TAB PO SCH (10:43)
[2019-07-29] MEDS: Aspirin 81 mg Enteric Coated Tablet PO SCH (10:43)
[2019-07-29] MEDS: Apixaban 5 MG TAB PO SCH (10:43)
[2019-07-29] MEDS: Levothyroxine Sodium 50 MCG TAB PO SCH (10:43)
[2019-07-29] MEDS: Gabapentin 100 MG CAP PO SCH ×2 (10:43→17:22)
[2019-07-29] MEDS: Sacubitril 49 MG/Valsartan 51 MG TABLET PO SCH (10:43)
[2019-07-29] MEDS: Nystatin/Triamcinolone Cream 15 GM TUBE TOP SCH (10:45)
[2019-07-29] MEDS: Primidone 50 MG TAB PO SCH (10:59)
[2019-07-29] MEDS: Diclofenac 1% 100 GM GEL TP SCH ×2 (10:59→14:57)
[2019-07-29 11:55] VITALS: TEMP 97.9
[2019-07-29 11:58] VITALS: BP 149/70
--- NOTE | 2019-07-29 12:05 | PDOC.HOSPP ---
- Subjective Encounter Date: 07/29/19 Encounter Time: 12:04 Subjective: Mr. Carranza was seen today in follow-up of pre-syncope. He notes some pain in his left knee, otherwise ok. - Objective Vital Signs & Weight: Vital Signs (12 hours) Temp Pulse Pulse Resp BP BP Pulse Ox 07/29/19 11:21 97.9 F 60 14 138/65 98 07/29/19 10:03 78 149/70 H 07/29/19 08:00 97.8 F 83 18 143/66 H 96 07/29/19 04:00 97.7 F 63 22 H 152/67 H 93 L Weight Weight 229 lb 9.6 oz I&O: 07/28/19 07/29/19 07/30/19 07:59 06:59 06:59 Intake Total 240 Output Total Balance 240 Result Diagrams: 07/27/19 04:23 07/27/19 04:23 Hospitalist ROS - Medication Medications: Active Medications Generic Name Dose Route Start Last Admin Trade Name Freq PRN Reason Stop Dose Admin Acetaminophen 650 mg 07/26/19 07:36 07/27/19 13:30 Tylenol PO 650 mg Q4H PRN Administration Headache/Fever/Mild Pain (1-3) Allopurinol 300 mg 07/26/19 21:00 07/28/19 20:08 Zyloprim PO Not Given QPM [facility] Apixaban 5 mg 07/26/19 21:00 07/29/19 10:43 Eliquis PO 5 mg BID [facility] Administration Aspirin 81 mg 07/26/19 09:00 07/29/19 10:43 Ecotrin PO 81 mg DAILY [facility] Administration Atorvastatin Calcium 40 mg 07/26/19 21:00 07/28/19 20:09 Lipitor PO Not Given QPM [facility] Clonazepam 0.5 mg 07/26/19 21:00 07/28/19 20:09 Klonopin PO Not Given QPM [facility] Diclofenac Sodium 2 gm 07/27/19 21:00 07/29/19 10:59 Voltaren TP 1 applic QID [facility] Administration Duloxetine HCl 60 mg 07/26/19 21:00 07/28/19 20:09 Cymbalta PO Not Given HS [facility] Famotidine 20 mg 07/26/19 09:00 07/29/19 10:43 Pepcid PO 20 mg BID [facility] Administration Gabapentin 100 mg 07/26/19 09:00 07/29/19 10:43 Neurontin PO 100 mg TID [facility] Administration Levothyroxine Sodium 50 mcg 07/26/19 09:00 07/29/19 10:43 Synthroid PO 50 mcg QAM [facility] Administration Metoprolol Succinate 25 mg 07/26/19 09:00 07/29/19 10:43 Toprol Xl PO 25 mg DAILY [facility] Administration Nystatin/Triamcinolone Acetonide 0 gm 07/26/19 09:00 07/29/19 10:45 Mycogen Ii Cream TOP 1 applic BID [facility] Administration Primidone 150 mg 07/26/19 09:00 07/29/19 10:59 Mysoline PO 150 mg BID [facility] Administration Sacubitril/Valsartan 2 tab 07/26/19 09:00 07/29/19 10:43 Entresto 49 Mg-51 Mg Tablet PO 2 tab BID [facility] Administration Sodium Chloride 10 ml 07/26/19 09:00 07/29/19 10:49 Flush - Normal Saline IVF 10 ml Q12HR [facility] Administration - Exam Eye: PERRL Heart: RRR, no murmur, no gallops, no rubs, normal peripheral pulses Respiratory: CTAB, no wheezes, no rales, no ronchi, normal chest expansion, no tachypnea Gastrointestinal: soft, non-tender, non-distended, normal bowel sounds, no palpable masses, no hepatomegaly Extremities: no cyanosis, no clubbing, no edema Musculoskeletal: no muscle wasting (No joint effusions in either knee, no redness or warmth, mild crepitus Normal passive ROM, mild tenderness on the left lateral pre-patellar area) Psychiatric: normal affect, normal behavior, A&O x 3 Hosp A/P (1) Pre-syncope Status: Acute (2) CAD (coronary artery disease) Code(s): I25.10 - ATHSCL HEART DISEASE OF [place] CORONARY ARTERY W/O ANG PCTRS Status: Chronic (3) HTN (hypertension) Code(s): I10 - ESSENTIAL (PRIMARY) HYPERTENSION Status: Chronic (4) Hypothyroid Code(s): E03.9 - HYPOTHYROIDISM, UNSPECIFIED Status: Chronic (5) Atrial fibrillation Code(s): I48.91 - UNSPECIFIED ATRIAL FIBRILLATION Status: Chronic (6) Nausea & vomiting Code(s): R11.2 - NAUSEA WITH VOMITING, UNSPECIFIED Status: Resolved (7) Heart failure, systolic and diastolic Code(s): I50.40 - UNSP COMBINED SYSTOLIC AND DIASTOLIC (CONGESTIVE) HRT FAIL Status: Chronic - Plan * Left knee pain- likely tendonitis- symptom management * Pre-syncope- possible vaso-vagal- resolved * Nausea and Vomiting- resolved * HTN- blood pressure is stable * AFIB- his heart rate is stable * Combined Systolic and Diastolic heart failure- compensated * Awaiting Rehab transfer
--- NOTE | 2019-07-30 04:38 | DIS ---
DATE OF ADMISSION: 07/26/2019 DATE OF DISCHARGE: 07/29/2019 DISCHARGE DISPOSITION: To inpatient rehab. DISCHARGE DIAGNOSES: 1. Presyncope. 2. Atrial fibrillation. 3. Coronary artery disease. 4. Hypertension. 5. Hypothyroidism. 6. Chronic combined systolic and diastolic congestive heart failure. DISCHARGE MEDICATIONS: Include; 1. Prednisone 20 mg daily. 2. Eliquis 5 mg twice daily. 3. Entresto 97/103 mg twice a day. 4. Primidone 150 mg p.o. twice daily. 5. Potassium chloride 10 mEq daily. 6. Metoprolol succinate 25 mg daily. 7. Levothyroxine 50 mcg p.o. daily. 8. Neurontin 100 mg t.i.d. 9. Lasix 20 mg daily. 10. Cymbalta 60 mg daily. 11. Clonazepam 0.5 mg q.p.m. 12. Atorvastatin 40 mg q.p.m. 13. Aspirin 81 mg daily. 14. Allopurinol 300 mg daily. PROCEDURES DONE DURING ADMISSION: The patient had a CT scan of the brain, which was negative for any acute intracranial abnormalities. Patient also had a CT scan of the abdomen and pelvis showing fluid distention of the stomach and heterogeneous mass at the pancreatic tail and severe arthrosclerosis. The patient also had an echocardiogram which showed an ejection fraction of 40% to 45% as well as evidence of diastolic dysfunction. CODE STATUS: Full code. ALLERGIES: NO KNOWN DRUG ALLERGIES. HOSPITAL COURSE: Mr. Carranza is an 78-year-old gentleman, who was brought to the emergency room after suffering a presyncopal episode. The full details of which are outlined in the history and physical. There was concern that this could have a cardiac etiology and for this reason, Cardiology was consulted. 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 CT scan of the brain was negative for any significant change. He had some significant deconditioning and musculoskeletal pains in his knees and for this reason, he was transferred to the inpatient rehabilitation facility for further treatment. Job ID: [id number]
--- NOTE | 2019-07-31 03:08 | PQF ---
[facility] KEELEY MORFIN JR, TONI MD [id number] [facility]-[id number] CLINICAL DOCUMENTATION CLARIFICATION FORM: POST DISCHARGE Addendum to original discharge summary date: ____ Late entry note date: __ DATE: 07/31/19 ATTN: Siddharth Jane Please exercise your independent, professional judgment in responding to the clarification form. Clinical indicators are provided on the bottom of this form for your review In your clinical opinion based on clinical findings below, can you please identify the etiology of Presyncopal episode, if due to: Please check appropriate box(s): [ ] Atrial Fibrillation [ ] Viral Gastroenteritis [ ] Other diagnosis [ ] Unable to determine In addition, please specify: Present on Admission (POA): [ ] Yes [ ] No [ ] Unable to determine For continuity of documentation, please document condition throughout progress notes and discharge summary. Thank You. CLINICAL INDICATORS - SIGNS / SYMPTOMS / LABS H&P p1 07/26 Dr Esteban presents with acute onset of nause, vomitng, diarrhea and near syncope H&P p1 07/26 Dr Esteban Patient having nausea, vomitng x1, and diarrhea. Patient felt like he was going to pass out at that time though he did not actually passout H&P p1 07/26 Dr Esteban With patient's cardiac history will consult cardiology for near syncope RISK FACTORS H&P p3 07/26 Reports Afib, CHF, valve insdufficiency H&P p6 07/26 Viral Gastroenteritis TREATMENTS: H&P p1 07/26 Echocardiogram ordered H&P p7 07/26 Continuous telemetry to monitor arrhythmia Cardiology Consult 07/26 Suri Palencia (This form is maintained as a part of the permanent medical record) 2014 [employer]. All Rights Reserved [email or web address] [not provided] [email or web address]
== END 2019-07-29 17:38 | DRG 312 ==
LOC: SCSER 17:11 → 2NO 23:20 → OBSVTOIN 07-26 07:40
PROVIDERS: ADMIT Internal Medicine; ATTEND Internal Medicine
DX: R55 Syncope and collapse (principal); I50.42 Chronic combined systolic (congestive) and diastolic (congestive) heart failure; I69.351 Hemiplegia and hemiparesis following cerebral infarction affecting right dominant side; I25.10 Atherosclerotic heart disease of native coronary artery without angina pectoris; I11.0 Hypertensive heart disease with heart failure; E03.9 Hypothyroidism, unspecified; E78.5 Hyperlipidemia, unspecified; E78.00 Pure hypercholesterolemia, unspecified; F32.9 Major depressive disorder, single episode, unspecified; K86.89 Other specified diseases of pancreas; K52.9 Noninfective gastroenteritis and colitis, unspecified; I48.0 Paroxysmal atrial fibrillation; M25.562 Pain in left knee; M25.561 Pain in right knee; R25.1 Tremor, unspecified; Z85.46 Personal history of malignant neoplasm of prostate; Z95.0 Presence of cardiac pacemaker; Z79.899 Other long term (current) drug therapy; Z79.82 Long term (current) use of aspirin; Z79.890 Hormone replacement therapy; Z85.828 Personal history of other malignant neoplasm of skin; Z95.5 Presence of coronary angioplasty implant and graft; I25.2 Old myocardial infarction; Z28.21 Immunization not carried out because of patient refusal
CPT/HCPCS: 36415; 51701; 70450; 71045; 74176; 80048; 80053; 81003; 81015; 82550; 83605; 83690; 84484; 85025; 86301; 87040; 93005; 93306; 96365; 96367; 96375; J2405; J2543; J2920; J3490; Q9967

== ENCOUNTER 2025-04-27 10:09 | Emergency (ER) | payer MEDICARE ==
[2025-04-27] MEDS ORDERED: Boostrix 0.5 ML (Tdap) VIAL (>/=7 yrs of age) ONE (10:37)
[2025-04-27 10:44] LABS: #Basophils 0.06 10x3/uL (0.0-0.2); #Eosinophils 0.06 10x3/uL (0.0-0.7); #Monocytes 0.97 10x3/uL (0.11-0.59); #Neutrophils 10.92 10x3/uL (1.40-6.50); %Basophils 0.4 % (0.0-1.0); %Eosinophils 0.4 % (0.0-10.0); %Lymphocytes 10.8 % (21.0-51.0); %Monocytes 7.2 % (0.0-10.0); %Neutrophils 80.8 % (42.0-75.0); Hematocrit 33.8 % (42.0-52.0); Hemoglobin 10.9 g/dL (14.0-18.0); Mean Corpuscular Hemoglobin 33.5 pg (27.0-31.0); Mean Corpuscular Volume 104.0 fL (78.0-98.0); Platelet Count 135 10x3/uL (130-400); Red Blood Cell (RBC) Count 3.25 mill/uL (4.70-6.10); White Blood Cell (WBC) Count 13.53 10x3/uL (4.8-10.8)
[2025-04-27 11:02] LABS: INR-International Normal Ratio 1.3; PTT 33.7 sec (22.9-36.1); Prothrombin Time 16.0 sec (12.0-14.7)
[2025-04-27 11:08] LABS: ALT (SGPT) 9 U/L (Less than 45); AST (SGOT) 32 U/L (11-34); Albumin 3.1 g/dL (3.1-4.5); Alkaline Phosphatase 128 U/L (40-110); Anion Gap 17 mmol/L (10-20); BUN (Urea Nitrogen) 33 mg/dL (8.4-25.7); Bilirubin, Total 0.6 mg/dL (0.3-1.2); Calc. Creatinine Clearance 0 mL/min (70-130); Calcium 8.3 mg/dL (7.8-10.44); Carbon Dioxide 21 mmol/L (23-31); Chloride 106 mmol/L (98-107); Globulin 3.0 g/dL (2.4-3.5); Glucose 132 mg/dL (83-110); Lipase 15 U/L (8-78); Potassium 4.6 mmol/L (3.5-5.1); Sodium 139 mmol/L (136-145)
[2025-04-27] MEDS ORDERED: Iopamidol-370 76% 500 ML MDV (1 ML CHARGE) ONE (12:42)
[2025-04-27] MEDS ORDERED: Acetaminophen 325 MG TAB ONE (12:57)
[2025-04-27 20:14] LABS: Cocaine Metabolite Screen Negative (Negative); THC/Cannabinoid Screen Negative (Negative); Tricyclic Screen Negative (Negative)
[2025-04-27 20:20] LABS: Bacteria/HPF None Seen HPF (None Seen); CAUTI Indications for Culture Dysuria,urgency,freq; Glucose, Urine (Dipstick) Normal (Negative); Leukocyte 500 Leu/uL (Negative); Protein, Urine (Dipstick) 20 mg/dL (Neg-Trace); RBC/HPF 21-50 HPF (0-3); WBC/HPF Greater than 50 HPF (0-3)
[2025-04-27 20:21] LABS: Specific Gravity, Urine Greater than 1.050 (1.002-1.036); Urine Culture Reflex Yes Yes
[2025-04-27] MEDS ORDERED: cefTRIAXone (ROCEPHIN) 2 GM VIAL ONE (22:01)
== END 2025-04-27 22:37 ==
LOC: ERS 10:09
DX: S06.5X0A Traumatic subdural hemorrhage without loss of consciousness, initial encounter (principal); S42.032A Displaced fracture of lateral end of left clavicle, initial encounter for closed fracture; S13.4XXA Sprain of ligaments of cervical spine, initial encounter; S33.5XXA Sprain of ligaments of lumbar spine, initial encounter; S20.213A Contusion of bilateral front wall of thorax, initial encounter; S80.212A Abrasion, left knee, initial encounter; S80.211A Abrasion, right knee, initial encounter; I72.3 Aneurysm of iliac artery; I27.21 Secondary pulmonary arterial hypertension; Z86.73 Personal history of transient ischemic attack (TIA), and cerebral infarction without residual deficits; Z95.0 Presence of cardiac pacemaker; Z23 Encounter for immunization; W01.190A Fall on same level from slipping, tripping and stumbling with subsequent striking against furniture, initial encounter; Y93.01 Activity, walking, marching and hiking
CPT/HCPCS: 70450; 71260; 72125; 73030 ×2; 73564; 74177; 80053; 80306; 80307; 81001; 83690; 85025; 85610; 85730; 86850; 86900; 86901; 87077; 87086; 87186; 90715; 93005; 94760; G0390; J0696; Q9967; 36415; 90471; 96374

== ENCOUNTER 2025-05-17 12:01 | Inpatient (IN) | payer MEDICARE, OTHER ==
[2025-05-17 14:10] LABS: ALT (SGPT) 15 U/L (Less than 45); AST (SGOT) 25 U/L (11-34); Albumin 2.5 g/dL (3.1-4.5); Alkaline Phosphatase 156 U/L (40-110); Anion Gap 14 mmol/L (10-20); BUN (Urea Nitrogen) 39 mg/dL (8.4-25.7); Bilirubin, Total 0.5 mg/dL (0.3-1.2); Calc. Creatinine Clearance 0 mL/min (70-130); Calcium 8.4 mg/dL (7.8-10.44); Carbon Dioxide 30 mmol/L (23-31); Chloride 94 mmol/L (98-107); Globulin 3.0 g/dL (2.4-3.5); Glucose 99 mg/dL (83-110); Potassium 4.9 mmol/L (3.5-5.1); Sodium 133 mmol/L (136-145)
[2025-05-17 14:17] LABS: #Basophils 0.05 10x3/uL (0.0-0.2); #Eosinophils 0.15 10x3/uL (0.0-0.7); #Monocytes 1.16 10x3/uL (0.11-0.59); #Neutrophils 8.14 10x3/uL (1.40-6.50); %Basophils 0.5 % (0.0-1.0); %Eosinophils 1.4 % (0.0-10.0); %Lymphocytes 14.0 % (21.0-51.0); %Monocytes 10.5 % (0.0-10.0); %Neutrophils 73.1 % (42.0-75.0); Hematocrit 26.6 % (42.0-52.0); Hemoglobin 8.6 g/dL (14.0-18.0); Mean Corpuscular Hemoglobin 33.3 pg (27.0-31.0); Mean Corpuscular Volume 103.1 fL (78.0-98.0); Platelet Count 243 10x3/uL (130-400); Red Blood Cell (RBC) Count 2.58 mill/uL (4.70-6.10); White Blood Cell (WBC) Count 11.10 10x3/uL (4.8-10.8)
[2025-05-17] MEDS ORDERED: Furosemide 40 MG (4 mL) VIAL ONE (15:01)
[2025-05-17] MEDS ORDERED: Ketorolac Tromethamine 30 MG (1 mL) VIAL ONE (15:40)
[2025-05-17 17:36] LABS: Cardiac Risk 3.5 (Less than 4.5); Cholesterol 133.0 mg/dl (< 200 Desired); HDL Cholesterol 38.0 mg/dL (>60 Neg Risk); LDL Cholesterol, Calculated 80.0 mg/dL; Triglycerides 77.0 mg/dL (Less than 150)
[2025-05-17 17:56] LABS: Thyroid Stimulating Hormone 6.7533 uIU/mL (0.35-4.94); Vitamin B12 457.0 pg/mL (211-911)
[2025-05-17 23:57] LABS: CAUTI Indications for Culture Acute Hematuria; Glucose, Urine (Dipstick) Normal (Negative); Leukocyte 500 Leu/uL (Negative); Protein, Urine (Dipstick) Negative (Neg-Trace); RBC/HPF 21-50 HPF (0-3); Specific Gravity, Urine 1.009 (1.002-1.036); WBC/HPF Greater than 50 HPF (0-3)
[2025-05-18 00:05] LABS: Bacteria/HPF 1+ HPF (None Seen)
[2025-05-18 00:06] LABS: Urine Culture Reflex Yes Yes
[2025-05-18] MEDS: Furosemide 40 MG (4 mL) VIAL SLOW IVP SCH (10:02)
[2025-05-18 11:22] LABS: ALT (SGPT) 15 U/L (Less than 45); AST (SGOT) 28 U/L (11-34); Albumin 2.3 g/dL (3.1-4.5); Alkaline Phosphatase 139 U/L (40-110); Anion Gap 16 mmol/L (10-20); BUN (Urea Nitrogen) 40 mg/dL (8.4-25.7); Bilirubin, Total 0.5 mg/dL (0.3-1.2); Calc. Creatinine Clearance 94 mL/min (70-130); Calcium 8.2 mg/dL (7.8-10.44); Carbon Dioxide 27 mmol/L (23-31); Chloride 97 mmol/L (98-107); Globulin 2.9 g/dL (2.4-3.5); Glucose 81 mg/dL (83-110); Potassium 5.2 mmol/L (3.5-5.1); Sodium 135 mmol/L (136-145)
[2025-05-18 11:43] LABS: Free T4 (Free Thyroxine) 0.85 ng/dL (0.70-1.48)
[2025-05-18] MEDS: Transdermal Patch Removal TOP SCH (20:58)
[2025-05-18] MEDS ORDERED: Artificial Tear Ophth Sol 15 ML BOT EA EYE PRN (21:10)
[2025-05-18] MEDS ORDERED: Mineral Oil ENEMA PR PRN (21:10)
[2025-05-18] MEDS ORDERED: Acetaminophen 500 MG TAB PO PRN (21:10)
[2025-05-18] MEDS ORDERED: Bisacodyl 10 MG SUPP PR PRN (21:10)
[2025-05-18] MEDS: Senokot S 8.6-50 MG TAB PO SCH (22:55)
[2025-05-19 06:42] LABS: #Basophils 0.06 10x3/uL (0.0-0.2); #Eosinophils Less than 0.03 10x3/uL (0.0-0.7); #Monocytes 1.48 10x3/uL (0.11-0.59); #Neutrophils 18.07 10x3/uL (1.40-6.50); %Basophils 0.3 % (0.0-1.0); %Eosinophils 0.0 % (0.0-10.0); %Lymphocytes 2.8 % (21.0-51.0); %Monocytes 7.3 % (0.0-10.0); %Neutrophils 88.7 % (42.0-75.0); Hematocrit 26.9 % (42.0-52.0); Hemoglobin 8.2 g/dL (14.0-18.0); Mean Corpuscular Hemoglobin 33.3 pg (27.0-31.0); Mean Corpuscular Volume 109.3 fL (78.0-98.0); Platelet Count 245 10x3/uL (130-400); Red Blood Cell (RBC) Count 2.46 mill/uL (4.70-6.10); White Blood Cell (WBC) Count 20.37 10x3/uL (4.8-10.8)
[2025-05-19 06:59] LABS: ALT (SGPT) 19 U/L (Less than 45); AST (SGOT) 38 U/L (11-34); Albumin 2.1 g/dL (3.1-4.5); Alkaline Phosphatase 164 U/L (40-110); Anion Gap 18 mmol/L (10-20); BUN (Urea Nitrogen) 41 mg/dL (8.4-25.7); Bilirubin, Total 0.8 mg/dL (0.3-1.2); Calc. Creatinine Clearance 126 mL/min (70-130); Calcium 8.2 mg/dL (7.8-10.44); Carbon Dioxide 27 mmol/L (23-31); Chloride 97 mmol/L (98-107); Globulin 3.0 g/dL (2.4-3.5); Glucose 57 mg/dL (83-110); Potassium 4.6 mmol/L (3.5-5.1); Sodium 137 mmol/L (136-145)
[2025-05-19] MEDS ORDERED: Torsemide 20 MG TAB PO SCH (09:00)
[2025-05-19] MEDS ORDERED: Senokot S 8.6-50 MG TAB PO SCH (09:00)
[2025-05-19] MEDS: Primidone 50 MG TAB PO SCH (11:10)
[2025-05-19] MEDS: Senokot S 8.6-50 MG TAB PO SCH (11:11)
[2025-05-19] MEDS: Torsemide 20 MG TAB PO SCH (11:12)
[2025-05-19] MEDS: Sacubitril 24MG/Valsartan 26 MG TAB PO SCH (11:23)
[2025-05-19 13:41] LABS: Influenza A by NAA Not Detected (NotDetected); Influenza B by NAA Not Detected (NotDetected); RSV by NAA Not Detected (NotDetected); SARS-CoV-2 NAA Rapid Test Not Detected (NotDetected)
[2025-05-19] MEDS: Vancomycin (BATCH) 2.5 GM in Premix 1 BAG IVPB SCH (14:51)
[2025-05-19] MEDS: Azithromycin 500 MG in Sodium Chloride 0.9% 250 ML 250 ML IVPB SCH (14:56)
[2025-05-19 15:37] LABS: Bacteria/HPF 4+ HPF (None Seen); CAUTI Indications for Culture Fever or rigors; Glucose, Urine (Dipstick) Normal (Negative); Leukocyte 500 Leu/uL (Negative); Protein, Urine (Dipstick) 30 mg/dL (Neg-Trace); RBC/HPF Greater than 50 HPF (0-3); Specific Gravity, Urine 1.017 (1.002-1.036); WBC/HPF Greater than 50 HPF (0-3)
[2025-05-19 15:39] LABS: Urine Culture Reflex Yes Yes
[2025-05-19] MEDS: LevoFLOXacin 750 mg/D5W 750 MG in Premix 1 BAG IVPB SCH (18:33)
[2025-05-19] MEDS: Allopurinol 300 MG TAB PO SCH (20:24)
[2025-05-20] MEDS: Vancomycin 1 GM in Premix 1 BAG IVPB SCH (00:10)
[2025-05-20 05:44] LABS: #Basophils 0.06 10x3/uL (0.0-0.2); #Eosinophils 0.12 10x3/uL (0.0-0.7); #Monocytes 1.16 10x3/uL (0.11-0.59); #Neutrophils 12.43 10x3/uL (1.40-6.50); %Basophils 0.4 % (0.0-1.0); %Eosinophils 0.8 % (0.0-10.0); %Lymphocytes 9.1 % (21.0-51.0); %Monocytes 7.6 % (0.0-10.0); %Neutrophils 81.2 % (42.0-75.0); Hematocrit 25.5 % (42.0-52.0); Hemoglobin 7.5 g/dL (14.0-18.0); Mean Corpuscular Hemoglobin 32.3 pg (27.0-31.0); Mean Corpuscular Volume 109.9 fL (78.0-98.0); Platelet Count 209 10x3/uL (130-400); Red Blood Cell (RBC) Count 2.32 mill/uL (4.70-6.10); White Blood Cell (WBC) Count 15.29 10x3/uL (4.8-10.8)
[2025-05-20 06:05] LABS: Vancomycin, Random 24.2 ug/mL (See Comment)
[2025-05-20 06:07] LABS: ALT (SGPT) 19 U/L (Less than 45); AST (SGOT) 37 U/L (11-34); Albumin 2.0 g/dL (3.1-4.5); Alkaline Phosphatase 150 U/L (40-110); Anion Gap 17 mmol/L (10-20); BUN (Urea Nitrogen) 47 mg/dL (8.4-25.7); Bilirubin, Total 0.5 mg/dL (0.3-1.2); Calc. Creatinine Clearance 95 mL/min (70-130); Calcium 8.1 mg/dL (7.8-10.44); Carbon Dioxide 27 mmol/L (23-31); Chloride 99 mmol/L (98-107); Globulin 3.0 g/dL (2.4-3.5); Glucose 93 mg/dL (83-110); Potassium 4.7 mmol/L (3.5-5.1); Sodium 138 mmol/L (136-145)
[2025-05-21 04:34] LABS: #Basophils 0.04 10x3/uL (0.0-0.2); #Eosinophils 0.19 10x3/uL (0.0-0.7); #Monocytes 0.83 10x3/uL (0.11-0.59); #Neutrophils 8.09 10x3/uL (1.40-6.50); %Basophils 0.4 % (0.0-1.0); %Eosinophils 1.8 % (0.0-10.0); %Lymphocytes 12.6 % (21.0-51.0); %Monocytes 7.9 % (0.0-10.0); %Neutrophils 76.8 % (42.0-75.0); Hematocrit 26.0 % (42.0-52.0); Hemoglobin 7.8 g/dL (14.0-18.0); Mean Corpuscular Hemoglobin 32.2 pg (27.0-31.0); Mean Corpuscular Volume 107.4 fL (78.0-98.0); Platelet Count 191 10x3/uL (130-400); Red Blood Cell (RBC) Count 2.42 mill/uL (4.70-6.10); White Blood Cell (WBC) Count 10.53 10x3/uL (4.8-10.8)
[2025-05-21 04:53] LABS: ALT (SGPT) 21 U/L (Less than 45); AST (SGOT) 47 U/L (11-34); Albumin 2.1 g/dL (3.1-4.5); Alkaline Phosphatase 142 U/L (40-110); Anion Gap 12 mmol/L (10-20); BUN (Urea Nitrogen) 44 mg/dL (8.4-25.7); Bilirubin, Total 0.4 mg/dL (0.3-1.2); Calc. Creatinine Clearance 106 mL/min (70-130); Calcium 8.1 mg/dL (7.8-10.44); Carbon Dioxide 32 mmol/L (23-31); Chloride 100 mmol/L (98-107); Globulin 2.9 g/dL (2.4-3.5); Glucose 100 mg/dL (83-110); Potassium 4.3 mmol/L (3.5-5.1); Sodium 140 mmol/L (136-145)
[2025-05-21] MEDS: Furosemide 40 MG (4 mL) VIAL SLOW IVP SCH (06:03)
[2025-05-21] MEDS: Calcium Carbonate 500 MG ChewTAB PO PRN (21:51)
[2025-05-22 05:13] LABS: #Basophils 0.03 10x3/uL (0.0-0.2); #Eosinophils 0.17 10x3/uL (0.0-0.7); #Monocytes 0.64 10x3/uL (0.11-0.59); #Neutrophils 6.56 10x3/uL (1.40-6.50); %Basophils 0.3 % (0.0-1.0); %Eosinophils 1.9 % (0.0-10.0); %Lymphocytes 15.8 % (21.0-51.0); %Monocytes 7.2 % (0.0-10.0); %Neutrophils 74.3 % (42.0-75.0); Hematocrit 27.0 % (42.0-52.0); Hemoglobin 8.2 g/dL (14.0-18.0); Mean Corpuscular Hemoglobin 32.4 pg (27.0-31.0); Mean Corpuscular Volume 106.7 fL (78.0-98.0); Platelet Count 189 10x3/uL (130-400); Red Blood Cell (RBC) Count 2.53 mill/uL (4.70-6.10); White Blood Cell (WBC) Count 8.84 10x3/uL (4.8-10.8)
[2025-05-22 06:01] LABS: ALT (SGPT) 26 U/L (Less than 45); AST (SGOT) 56 U/L (11-34); Albumin 2.2 g/dL (3.1-4.5); Alkaline Phosphatase 156 U/L (40-110); Anion Gap 12 mmol/L (10-20); BUN (Urea Nitrogen) 35 mg/dL (8.4-25.7); Bilirubin, Total 0.5 mg/dL (0.3-1.2); Calc. Creatinine Clearance 114 mL/min (70-130); Calcium 8.3 mg/dL (7.8-10.44); Carbon Dioxide 34 mmol/L (23-31); Chloride 99 mmol/L (98-107); Globulin 3.1 g/dL (2.4-3.5); Glucose 97 mg/dL (83-110); Potassium 4.1 mmol/L (3.5-5.1); Sodium 141 mmol/L (136-145)
[2025-05-22] MEDS: Furosemide 40 MG TAB PO SCH (16:59)
[2025-05-22] MEDS: Lidocaine 2% Viscous Solution 10 ML, Aluminum & Magnesium Hydroxide 30 ML SSW SCH (17:00)
[2025-05-23 05:17] LABS: #Basophils 0.05 10x3/uL (0.0-0.2); #Eosinophils 0.27 10x3/uL (0.0-0.7); #Monocytes 0.66 10x3/uL (0.11-0.59); #Neutrophils 4.97 10x3/uL (1.40-6.50); %Basophils 0.7 % (0.0-1.0); %Eosinophils 3.8 % (0.0-10.0); %Lymphocytes 16.2 % (21.0-51.0); %Monocytes 9.2 % (0.0-10.0); %Neutrophils 69.5 % (42.0-75.0); Hematocrit 27.3 % (42.0-52.0); Hemoglobin 8.1 g/dL (14.0-18.0); Mean Corpuscular Hemoglobin 32.1 pg (27.0-31.0); Mean Corpuscular Volume 108.3 fL (78.0-98.0); Platelet Count 169 10x3/uL (130-400); Red Blood Cell (RBC) Count 2.52 mill/uL (4.70-6.10); White Blood Cell (WBC) Count 7.15 10x3/uL (4.8-10.8)
[2025-05-23 05:50] LABS: ALT (SGPT) 20 U/L (Less than 45); AST (SGOT) 33 U/L (11-34); Albumin 2.0 g/dL (3.1-4.5); Alkaline Phosphatase 133 U/L (40-110); Anion Gap 11 mmol/L (10-20); BUN (Urea Nitrogen) 31 mg/dL (8.4-25.7); Bilirubin, Total 0.5 mg/dL (0.3-1.2); Calc. Creatinine Clearance 132 mL/min (70-130); Calcium 8.1 mg/dL (7.8-10.44); Carbon Dioxide 35 mmol/L (23-31); Chloride 97 mmol/L (98-107); Globulin 2.9 g/dL (2.4-3.5); Glucose 94 mg/dL (83-110); Potassium 4.1 mmol/L (3.5-5.1); Sodium 139 mmol/L (136-145)
[2025-05-24 04:33] LABS: #Basophils 0.04 10x3/uL (0.0-0.2); #Eosinophils 0.20 10x3/uL (0.0-0.7); #Monocytes 0.82 10x3/uL (0.11-0.59); #Neutrophils 6.22 10x3/uL (1.40-6.50); %Basophils 0.4 % (0.0-1.0); %Eosinophils 2.2 % (0.0-10.0); %Lymphocytes 18.9 % (21.0-51.0); %Monocytes 9.1 % (0.0-10.0); %Neutrophils 69.0 % (42.0-75.0); Hematocrit 28.0 % (42.0-52.0); Hemoglobin 8.7 g/dL (14.0-18.0); Mean Corpuscular Hemoglobin 33.3 pg (27.0-31.0); Mean Corpuscular Volume 107.3 fL (78.0-98.0); Platelet Count 176 10x3/uL (130-400); Red Blood Cell (RBC) Count 2.61 mill/uL (4.70-6.10); White Blood Cell (WBC) Count 9.03 10x3/uL (4.8-10.8)
[2025-05-24 05:09] LABS: ALT (SGPT) 17 U/L (Less than 45); AST (SGOT) 27 U/L (11-34); Albumin 2.1 g/dL (3.1-4.5); Alkaline Phosphatase 133 U/L (40-110); Anion Gap 14 mmol/L (10-20); BUN (Urea Nitrogen) 28 mg/dL (8.4-25.7); Bilirubin, Total 0.5 mg/dL (0.3-1.2); Calc. Creatinine Clearance 126 mL/min (70-130); Calcium 8.1 mg/dL (7.8-10.44); Carbon Dioxide 31 mmol/L (23-31); Chloride 96 mmol/L (98-107); Globulin 3.2 g/dL (2.4-3.5); Glucose 92 mg/dL (83-110); Potassium 4.1 mmol/L (3.5-5.1); Sodium 137 mmol/L (136-145)
[2025-05-24] MEDS: Acetaminophen 325 MG TAB PO PRN (11:52)
[2025-05-24 15:32] VITALS: BP 112/56; TEMP 98.6
== END 2025-05-24 19:25 | DRG 291 ==
LOC: ERS 12:01 → 2NO 16:03
PROVIDERS: ADMIT Family Medicine; ATTEND Family Medicine
PROC: 0T9B70Z Drainage of Bladder with Drainage Device, Via Natural or Artificial Opening (ICD-10-PCS; principal; 2025-05-17)
PROC: 3E03329 Introduction of Other Anti-infective into Peripheral Vein, Percutaneous Approach (ICD-10-PCS; 2025-05-17)
PROC: 05HY33Z Insertion of Infusion Device into Upper Vein, Percutaneous Approach (ICD-10-PCS; 2025-05-20)
DX: I11.0 Hypertensive heart disease with heart failure (principal); I50.33 Acute on chronic diastolic (congestive) heart failure; J18.9 Pneumonia, unspecified organism; J96.01 Acute respiratory failure with hypoxia; Z66 Do not resuscitate; E87.1 Hypo-osmolality and hyponatremia; I69.351 Hemiplegia and hemiparesis following cerebral infarction affecting right dominant side; K86.2 Cyst of pancreas; N50.812 Left testicular pain; R31.0 Gross hematuria; N50.811 Right testicular pain; N50.89 Other specified disorders of the male genital organs; I48.91 Unspecified atrial fibrillation; R07.9 Chest pain, unspecified; I25.10 Atherosclerotic heart disease of native coronary artery without angina pectoris; E78.5 Hyperlipidemia, unspecified; I71.40 Abdominal aortic aneurysm, without rupture, unspecified; R33.9 Retention of urine, unspecified; Z85.46 Personal history of malignant neoplasm of prostate; Z95.0 Presence of cardiac pacemaker; Z98.890 Other specified postprocedural states; Z98.2 Presence of cerebrospinal fluid drainage device; Z79.899 Other long term (current) drug therapy; Z79.890 Hormone replacement therapy; Z79.891 Long term (current) use of opiate analgesic; Z92.3 Personal history of irradiation; Z95.5 Presence of coronary angioplasty implant and graft; D53.9 Nutritional anemia, unspecified; R74.8 Abnormal levels of other serum enzymes; R79.89 Other specified abnormal findings of blood chemistry; N48.89 Other specified disorders of penis; E88.09 Other disorders of plasma-protein metabolism, not elsewhere classified; R10.9 Unspecified abdominal pain; E03.8 Other specified hypothyroidism; I08.3 Combined rheumatic disorders of mitral, aortic and tricuspid valves; I37.1 Nonrheumatic pulmonary valve insufficiency
CPT/HCPCS: 36415; 36416; 71045; 76870; 80053; 80061; 80202; 81001; 82607; 83036; 83090; 83880; 84153; 84300; 84439; 84443; 84481; 84484; 85025; 87040; 87081; 87086; 87637; 93005; 93306; 93976; 94760; 96374; 96375; J1885; J1940; J1956; J2543; J3373; J7030